=== PATIENT | female | born 1975 ===

== ENCOUNTER 2017-12-24 11:10 | Outpatient (CLI) | payer OTHER | END 2017-12-24 11:14 | disposition home or self-care (01) | LOC: LAB 11:10 | DX: R50.9 Fever, unspecified (principal) ==

== ENCOUNTER → 2017-12-24 | Outpatient (CLI) | payer OTHER | END | disposition home or self-care (01) | LOC: PPHC 09:41 | DX: B34.9 Viral infection, unspecified (principal) ==

== ENCOUNTER 2018-02-04 10:12 | Outpatient (CLI) | payer OTHER | END 2018-02-04 15:00 | disposition home or self-care (01) | LOC: RAD 501 10:12 | DX: M48.02 Spinal stenosis, cervical region (principal) ==

== ENCOUNTER 2018-03-21 10:35 | Outpatient (CLI) | payer OTHER | END 2018-03-21 17:00 | disposition home or self-care (01) | LOC: MRI 10:35 | DX: M50.20 Other cervical disc displacement, unspecified cervical region (principal) | CPT/HCPCS: 72141 ==

== ENCOUNTER → 2018-07-21 12:00 | Outpatient (CLI) | payer OTHER | END | disposition home or self-care (01) | LOC: LAB 12:00 | DX: B34.8 Other viral infections of unspecified site (principal); R50.9 Fever, unspecified; J11.1 Influenza due to unidentified influenza virus with other respiratory manifestations ==

== ENCOUNTER 2019-02-02 07:29 | Outpatient (CLI) | payer OTHER | END 2019-02-02 10:21 | disposition home or self-care (01) | LOC: LAB 07:29 | DX: D64.89 Other specified anemias (principal); N95.1 Menopausal and female climacteric states; E03.8 Other specified hypothyroidism; E78.2 Mixed hyperlipidemia; N39.8 Other specified disorders of urinary system; E56.8 Deficiency of other vitamins; N93.8 Other specified abnormal uterine and vaginal bleeding ==

== ENCOUNTER 2019-02-02 07:59 | Outpatient (CLI) | payer OTHER | END 2019-02-02 08:02 | disposition home or self-care (01) | LOC: MAMO-SONO 07:59 | DX: N64.4 Mastodynia (principal); N63.10 Unspecified lump in the right breast, unspecified quadrant; N63.20 Unspecified lump in the left breast, unspecified quadrant; N60.09 Solitary cyst of unspecified breast; Z12.31 Encounter for screening mammogram for malignant neoplasm of breast ==